=== PATIENT | male | born 1950 | race Caucasian/White ===

== ENCOUNTER → 2023-05-04 09:55 | Outpatient (CLI) | payer MEDICARE, MEDICAID, SELFPAY ==
--- NOTE | 2023-05-05 22:16 | DI.NM.S_ITS ---
DATE OF SERVICE: 05/05/2023 PROCEDURE: Exercise perfusion study. INDICATIONS: Angina pectoris, shortness of breath, hypertension, hyperlipidemia, as well as chronically occluded circumflex and RCA. RADIOPHARMACEUTICAL: 25.4 millicurie technetium-99m Myoview IV was injected at stress and 25.8 millicurie technetium-99m Myoview IV was injected at rest. CARDIAC STRESS: Initially, patient attempted walking on the treadmill. He walked on the treadmill for 3 minutes on Robin protocol. Achieved 4.6 METS of workload. ZOILA of 43%. Maximum heart rate achieved 116, which was 79% of target heart rate. Maximum blood pressure achieved 160/100. The patient developed limiting angina that started about 1 minute and 30 seconds into the exercise and increased to moderate to severe at maximum exercise. It resolved 5 minutes into the recovery. Baseline ECG showed sinus rhythm. During stress, there was nonspecific, less than 1 mm, ST depression in the inferolateral leads without any significant arrhythmias. As target heart rate was not met, the patient received IV Lexiscan as per protocol. He remained hemodynamically stable. Mild flushing, but no chest pain. No new ischemic changes or significant arrhythmias. RAW DATA: There is increased subdiaphragmatic activity. GATED STUDY: Resting LV ejection fraction reported to be 72% and stress LV ejection fraction 74%. That may not be true. There is a basal inferior wall hypokinesis. Resting end-diastolic volume 103 mL. TID ratio 0.94, which is within normal limits. Lung/heart ratio 0.35, which is within normal limits. MYOCARDIAL PERFUSION SCAN: Stress supine, resting supine and stress prone images were compared to each other. It appears to be that patient has predominantly fixed, moderate size, severely decreased perfusion of basal to mid inferolateral wall as well as mild fixed inferoapical defect without any significant reversible ischemia. 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 No significant reversible ischemia. On gated study, left ventricular function appears to be preserved, but that may not be true. Diminished exercise tolerance. The patient walked on Robin protocol for 3 minutes and had significant angina. Nonspecific ST changes at that time. No significant arrhythmias. Correlate clinically. As patient has significant angina during exertion, reasonable to repeat left heart catheterization. Elliot Clinton - ANTONI/anjelica/MT doc#: [id number]/job#: [id number] dd: 05/05/2023 16:55:00 dt: 05/05/2023 22:03:00 DICTATING MD/COPIES TO: Jesse Shah MD; Monica Anderson MD COPIES MNE: MICHELLE;
== END ==
LOC: NUCM 09:59
PROVIDERS: Referring Provider Internal Medicine Cardiovascular Disease; Visit Provider Internal Medicine Cardiovascular Disease
DX: I25.119 Atherosclerotic heart disease of native coronary artery with unspecified angina pectoris (principal)
CPT/HCPCS: 78452; 93017; A9502; J2785